=== PATIENT | male | born 1965 | race Caucasian/White ===

== ENCOUNTER 2017-04-26 21:44 | Emergency (ER) | payer MEDICAID ==
[~2017-04-26] VITALS: Ht 172.7 cm; Wt 85.3 kg
[2017-04-26 21:51] VITALS: BP_SYST 160
--- NOTE | 2017-04-26 23:21 | NUR ---
Patient to ER bed 2 to gown for evaluation. Side rails up. Report given to JODI JONAS.
--- NOTE | 2017-04-26 23:30 | NUR ---
Patient AAO x4, sitting in bed, c/o lower left abdominal pain at inguinal hernia repair site. Patient states he gets "dizzy" and "bloated". Vital signs stable. No acute distress noted. Will continue to monitor.
--- NOTE | 2017-04-26 23:39 | NUR ---
ER at bedside examining patient.
[2017-04-27 00:04] LABS: BASOPHILS % (AUTO) 0.5 % (0.0-2.0); EOSINOPHILS # (AUTO) 0.1 K/uL (0.0-0.4); EOSINOPHILS % (AUTO) 1.2 % (0.0-4.0); HEMATOCRIT 46.6 % (36-54); HEMOGLOBIN 15.3 g/dL (14.0-18.0); LYMPHOCYTES # (AUTO) 1.7 K/uL (1.0-5.5); LYMPHOCYTES % (AUTO) 21.2 % (20.5-51.5); MEAN CORPUSCULAR HEMOGLOBIN 29 pg (27-31); MEAN CORPUSCULAR HGB CONC 33 % (32-36); MEAN CORPUSCULAR VOLUME 88 fL (79.0-98.0); MONOCYTES # (AUTO) 0.9 K/uL (0.0-1.0); MONOCYTES % (AUTO) 10.9 % (1.7-9.3); NEUTROPHILS # (AUTO) 5.4 K/uL (1.8-7.7); NEUTROPHILS % (AUTO) 66.2 % (40.0-70.0); PLATELET COUNT (AUTO) 256 K/uL (130-430); RED BLOOD CELL COUNT(AUTO) 5.29 MIL/uL (4.2-6.2); RED CELL DISTRIBUTION WIDTH 12.1 % (9.0-15.0); WHITE BLOOD COUNT (AUTO) 8.1 K/uL (4.8-10.8)
[2017-04-27 00:13] LABS: ANION GAP 7 (5-15); CALCIUM 9.8 mg/dL (8.4-11.0); CHLORIDE 95 mmol/L (98-107); CREATININE 1.29 mg/dL (0.55-1.30); GLUCOSE 104 mg/dL (70-99); POTASSIUM 4.3 mmol/L (3.5-5.1); SODIUM SERUM 130 mmol/L (136-145); UREA NITROGEN, BLOOD 20 mg/dL (8-21)
[2017-04-27 00:14] LABS: GFR AFRICAN AMERICAN 76 mL/min (>90)
[2017-04-27 00:19] LABS: ALANINE AMINOTRANSFERASE 25 U/L (12-78); ALBUMIN 3.9 g/dL (3.4-4.8); ASPARTATE AMINOTRANSFERASE < 5 U/L (10-37); LIPASE 181 U/L (73-393); TOTAL BILIRUBIN 1.6 mg/dL (0.0-1.0)
[2017-04-27 01:00] VITALS: BP_SYST 155
--- NOTE | 2017-04-27 01:00 | NUR ---
Patient given written and verbal discharge instructions and verbalizes understanding. ER MD Dr. Honeycutt discussed with patient the results and treatment provided. Patient in stable condition. ID arm band removed. Rx of simethicone and meclizine given. Patient educated on pain management and to follow up with PMD. Pain Scale 0/10 . Opportunity for questions provided and answered. Medication side effect fact sheet provided.
== END 2017-04-27 01:00 | disposition home or self-care (01) ==
LOC: SED 21:44
DX: K80.20 Calculus of gallbladder without cholecystitis without obstruction (principal); I10 Essential (primary) hypertension; Z90.89 Acquired absence of other organs
CPT/HCPCS: 36415; 80053; 83690-TC; 85025; 99285

== ENCOUNTER 2017-05-29 17:12 | Inpatient (IN) | payer MEDICAID ==
[~2017-05-29] VITALS: Ht 172.7 cm; Wt 83.0 kg
[2017-05-29 17:21] VITALS: BP_SYST 157
[2017-05-29] MEDS ORDERED: NACL 0.9% 1,000 ML IV ONE ×2 (17:26→18:45)
[2017-05-29] MEDS ORDERED: KETOROLAC TROMETHAMINE 30 MG VIAL IVP ONE (17:30)
[2017-05-29] MEDS ORDERED: ONDANSETRON HCL 4 MG/2 ML VIAL IVP ONE (17:30)
[2017-05-29 17:39] LABS: BASOPHILS # (AUTO) 0.1 K/uL (0.0-0.2); EOSINOPHILS # (AUTO) 0.1 K/uL (0.0-0.4); EOSINOPHILS % (AUTO) 1.1 % (0.0-4.0); HEMATOCRIT 45.8 % (36-54); HEMOGLOBIN 15.4 g/dL (14.0-18.0); LYMPHOCYTES # (AUTO) 1.4 K/uL (1.0-5.5); MEAN CORPUSCULAR HEMOGLOBIN 29 pg (27-31); MEAN CORPUSCULAR HGB CONC 34 % (32-36); MEAN CORPUSCULAR VOLUME 87 fL (79.0-98.0); MONOCYTES # (AUTO) 0.9 K/uL (0.0-1.0); MONOCYTES % (AUTO) 7.4 % (1.7-9.3); NEUTROPHILS # (AUTO) 10.2 K/uL (1.8-7.7); NEUTROPHILS % (AUTO) 79.5 % (40.0-70.0); PLATELET COUNT (AUTO) 242 K/uL (130-430); RED BLOOD CELL COUNT(AUTO) 5.24 MIL/uL (4.2-6.2); RED CELL DISTRIBUTION WIDTH 12.6 % (9.0-15.0); WHITE BLOOD COUNT (AUTO) 12.7 K/uL (4.8-10.8)
[2017-05-29 17:54] LABS: CALCIUM 9.3 mg/dL (8.4-11.0); CREATININE 0.95 mg/dL (0.55-1.30)
[2017-05-29 17:59] LABS: ALBUMIN 3.9 g/dL (3.4-4.8)
[2017-05-29] MEDS ORDERED: LISI-221 PO (18:19)
[2017-05-29] MEDS ORDERED: fentaNYL CITRATE/PF 100 MCG/2 ML AMP IVP ONE (18:45)
[2017-05-29] MEDS ORDERED: PANTOPRAZOLE SODIUM 40 MG/VIAL (PROTONIX) IVP ONE (18:45)
[2017-05-29 19:26] VITALS: BP_SYST 160
[2017-05-29] MEDS ORDERED: cloNIDine HCL 0.1 MG TABLET PO PRN (19:30)
[2017-05-29] MEDS ORDERED: ONDANSETRON HCL 4 MG/2 ML VIAL IVP PRN (19:30)
[2017-05-29] MEDS ORDERED: MORPHINE 2 MG/ML INJ. SYRINGE IVP PRN (19:30)
[2017-05-29 19:31] LABS: BILIRUBIN,URINE NEGATIVE (NEGATIVE); BLOOD, URINE NEGATIVE (NEGATIVE); CLARITY/URINE CLEAR (CLEAR); COLOR,URINE YELLOW (YELLOW); GLUCOSE,URINE NEGATIVE (NEGATIVE); KETONES,URINE NEGATIVE (NEGATIVE); LEUKOCYTE ESTERASE ,URINE NEGATIVE (NEGATIVE); NITRITE, URINE NEGATIVE (NEGATIVE); PH,URINE 7.5 (5.0-8.0); PROTEIN URINE NEGATIVE (NEGATIVE); UROBILINOGEN,URINE 0.2 (0.2-1.0)
[2017-05-29 19:36] VITALS: BP_SYST 160
[2017-05-29] MEDS: MORPHINE 4 MG/ML INJ. SYRINGE IVP PRN ×2 (19:58→21:24)
[2017-05-29] MEDS: D5NS 1,000 ML IV SCH (20:11)
[2017-05-29] MEDS: hydrALAZINE HCL 20 MG/ML VIAL IVP PRN (20:28)
[2017-05-30] MEDS: D5NS 1,000 ML IV SCH ×3 (04:28→20:35)
[2017-05-30 08:15] VITALS: BP_SYST 134
[2017-05-30] MEDS: MORPHINE 4 MG/ML INJ. SYRINGE IVP PRN (09:17)
[2017-05-30 11:03] LABS: EOSINOPHILS # (AUTO) 0.1 K/uL (0.0-0.4); LYMPHOCYTES # (AUTO) 0.9 K/uL (1.0-5.5); MONOCYTES # (AUTO) 0.8 K/uL (0.0-1.0); NEUTROPHILS # (AUTO) 6.8 K/uL (1.8-7.7); WHITE BLOOD COUNT (AUTO) 8.6 K/uL (4.8-10.8)
[2017-05-30 11:05] LABS: BASOPHILS % (AUTO) 0.5 % (0.0-2.0); EOSINOPHILS % (AUTO) 0.9 % (0.0-4.0); HEMATOCRIT 39.8 % (36-54); HEMOGLOBIN 13.7 g/dL (14.0-18.0); LYMPHOCYTES % (AUTO) 10.8 % (20.5-51.5); MEAN CORPUSCULAR HEMOGLOBIN 30 pg (27-31); MEAN CORPUSCULAR HGB CONC 34 % (32-36); MEAN CORPUSCULAR VOLUME 88 fL (79.0-98.0); MONOCYTES % (AUTO) 9.7 % (1.7-9.3); NEUTROPHILS % (AUTO) 78.1 % (40.0-70.0); PLATELET COUNT (AUTO) 213 K/uL (130-430); RED BLOOD CELL COUNT(AUTO) 4.54 MIL/uL (4.2-6.2); RED CELL DISTRIBUTION WIDTH 12.5 % (9.0-15.0)
[2017-05-30 11:10] LABS: CALCIUM 7.8 mg/dL (8.4-11.0); CREATININE 0.7 mg/dL (0.55-1.30); POTASSIUM 3.8 mmol/L (3.5-5.1)
[2017-05-30 11:15] LABS: TOTAL BILIRUBIN 0.8 mg/dL (0.0-1.0)
[2017-05-30 12:00] VITALS: BP_SYST 128
[2017-05-30 14:47] LABS: BARBITURATE, URINE NEGATIVE (NEG <=200); BENZODIAZEPINE, URINE NEGATIVE (NEG <=150); CANNABINOID, URINE NEGATIVE (NEG <=50); COCAINE, URINE NEGATIVE (NEG <=150); METHAMPHETAMINES SCREEN,URINE NEGATIVE (NEG <=500); OPIATE, URINE NEGATIVE (NEG <=100); PHENCYCLIDINE SCREEN,URINE NEGATIVE (NEG <=25); UR TRICYCLIC ANTIDEPRESSANTS NEGATIVE (NEG <=300); URINE AMPHETAMINE NEGATIVE (NEG <=500); URINE METHADONE NEGATIVE (NEG <=200); URINE OXYCODONE SCREEN NEGATIVE (NEG <=100); URINE PROPOXYPHENE SCREEN NEGATIVE (NEG <=300)
[2017-05-30 16:52] VITALS: BP_SYST 135
[2017-05-30 20:05] VITALS: BP_SYST 144
[2017-05-31] VITALS (7 sets, daily range): BP systolic 125–165
[2017-05-31] MEDS: D5NS 1,000 ML IV SCH ×3 (02:56→18:44)
[2017-05-31 05:52] LABS: ALBUMIN 2.9 g/dL (3.4-4.8); CALCIUM 8.3 mg/dL (8.4-11.0); CREATININE 0.82 mg/dL (0.55-1.30); POTASSIUM 3.7 mmol/L (3.5-5.1); TOTAL BILIRUBIN 0.9 mg/dL (0.0-1.0)
[2017-05-31 05:55] LABS: BASOPHILS % (AUTO) 0.2 % (0.0-2.0); EOSINOPHILS # (AUTO) 0.1 K/uL (0.0-0.4); EOSINOPHILS % (AUTO) 1.3 % (0.0-4.0); HEMATOCRIT 40.4 % (36-54); HEMOGLOBIN 13.8 g/dL (14.0-18.0); LYMPHOCYTES # (AUTO) 0.8 K/uL (1.0-5.5); LYMPHOCYTES % (AUTO) 8.9 % (20.5-51.5); MEAN CORPUSCULAR HEMOGLOBIN 30 pg (27-31); MEAN CORPUSCULAR HGB CONC 34 % (32-36); MEAN CORPUSCULAR VOLUME 88 fL (79.0-98.0); MONOCYTES # (AUTO) 0.9 K/uL (0.0-1.0); MONOCYTES % (AUTO) 10.3 % (1.7-9.3); NEUTROPHILS # (AUTO) 7.2 K/uL (1.8-7.7); NEUTROPHILS % (AUTO) 79.3 % (40.0-70.0); PLATELET COUNT (AUTO) 205 K/uL (130-430); RED BLOOD CELL COUNT(AUTO) 4.58 MIL/uL (4.2-6.2); RED CELL DISTRIBUTION WIDTH 13.1 % (9.0-15.0)
[2017-05-31] MEDS: hydrALAZINE HCL 20 MG/ML VIAL IVP PRN (12:36)
[2017-06-01] MEDS: TEMAZEPAM 15 MG CAPSULE PO PRN (00:02)
[2017-06-01 06:36] LABS: BASOPHILS % (AUTO) 0.4 % (0.0-2.0); EOSINOPHILS # (AUTO) 0.2 K/uL (0.0-0.4); EOSINOPHILS % (AUTO) 2.2 % (0.0-4.0); HEMATOCRIT 41.1 % (36-54); HEMOGLOBIN 13.8 g/dL (14.0-18.0); LYMPHOCYTES # (AUTO) 1.1 K/uL (1.0-5.5); LYMPHOCYTES % (AUTO) 11.8 % (20.5-51.5); MEAN CORPUSCULAR HEMOGLOBIN 30 pg (27-31); MEAN CORPUSCULAR HGB CONC 34 % (32-36); MEAN CORPUSCULAR VOLUME 89 fL (79.0-98.0); MONOCYTES # (AUTO) 1.1 K/uL (0.0-1.0); MONOCYTES % (AUTO) 12.5 % (1.7-9.3); NEUTROPHILS # (AUTO) 6.5 K/uL (1.8-7.7); NEUTROPHILS % (AUTO) 73.1 % (40.0-70.0); PLATELET COUNT (AUTO) 226 K/uL (130-430); RED BLOOD CELL COUNT(AUTO) 4.63 MIL/uL (4.2-6.2); RED CELL DISTRIBUTION WIDTH 12.9 % (9.0-15.0); WHITE BLOOD COUNT (AUTO) 8.9 K/uL (4.8-10.8)
[2017-06-01 06:57] LABS: ALBUMIN 3.1 g/dL (3.4-4.8); CALCIUM 8.7 mg/dL (8.4-11.0); CREATININE 0.78 mg/dL (0.55-1.30); POTASSIUM 3.4 mmol/L (3.5-5.1); TOTAL BILIRUBIN 1.6 mg/dL (0.0-1.0)
[2017-06-01 08:00] VITALS: BP_SYST 135
[2017-06-01] MEDS ORDERED: MORPHINE 4 MG/ML INJ. SYRINGE IVP PRN (09:31)
[2017-06-01] MEDS: D5NS 1,000 ML IV SCH ×3 (10:33→20:43)
[2017-06-01 12:53] VITALS: BP_SYST 143
[2017-06-01 16:45] VITALS: BP_SYST 142
[2017-06-01] MEDS ORDERED: DIATR MEGLU/DIATRIZ SOD 30 ML SOLUTION PO ONE (16:57)
[2017-06-01 19:00] VITALS: BP_SYST 140
[2017-06-01 20:00] VITALS: BP_SYST 140
[2017-06-02 00:09] VITALS: BP_SYST 135
[2017-06-02] MEDS: TEMAZEPAM 15 MG CAPSULE PO PRN (01:05)
[2017-06-02] MEDS: D5NS 1,000 ML IV SCH ×3 (03:23→15:47)
[2017-06-02 08:20] VITALS: BP_SYST 136
[2017-06-02 12:06] VITALS: BP_SYST 134
[2017-06-02 16:05] VITALS: BP_SYST 130
[2017-06-02 20:05] VITALS: BP_SYST 135
[2017-06-02 23:43] VITALS: BP_SYST 132
[2017-06-03] MEDS: D5NS 1,000 ML IV SCH ×2 (00:32→09:06)
[2017-06-03 06:20] LABS: BASOPHILS % (AUTO) 0.5 % (0.0-2.0); EOSINOPHILS # (AUTO) 0.2 K/uL (0.0-0.4); EOSINOPHILS % (AUTO) 3.4 % (0.0-4.0); HEMATOCRIT 38.4 % (36-54); HEMOGLOBIN 13.2 g/dL (14.0-18.0); LYMPHOCYTES # (AUTO) 1.1 K/uL (1.0-5.5); LYMPHOCYTES % (AUTO) 15.7 % (20.5-51.5); MEAN CORPUSCULAR HEMOGLOBIN 30 pg (27-31); MEAN CORPUSCULAR HGB CONC 34 % (32-36); MEAN CORPUSCULAR VOLUME 88 fL (79.0-98.0); MONOCYTES # (AUTO) 0.9 K/uL (0.0-1.0); MONOCYTES % (AUTO) 12.5 % (1.7-9.3); NEUTROPHILS # (AUTO) 4.9 K/uL (1.8-7.7); NEUTROPHILS % (AUTO) 67.9 % (40.0-70.0); PLATELET COUNT (AUTO) 224 K/uL (130-430); RED BLOOD CELL COUNT(AUTO) 4.35 MIL/uL (4.2-6.2); RED CELL DISTRIBUTION WIDTH 12.4 % (9.0-15.0); WHITE BLOOD COUNT (AUTO) 7.1 K/uL (4.8-10.8)
[2017-06-03 07:03] LABS: ALBUMIN 2.9 g/dL (3.4-4.8); CALCIUM 8.5 mg/dL (8.4-11.0); CREATININE 0.79 mg/dL (0.55-1.30); POTASSIUM 3.1 mmol/L (3.5-5.1)
[2017-06-03 08:20] VITALS: BP_SYST 150
[2017-06-03] MEDS: LEVOFLOXACIN 500 MG/D5W 100 ML IV SCH (09:25)
[2017-06-03] MEDS ORDERED: POTASSIUM CHLORIDE 20 MEQ/PKT PACKET PO ONE (12:15)
[2017-06-03] MEDS ORDERED: LR 1,000 ML IV SCH (12:15)
[2017-06-03 13:12] VITALS: BP_SYST 151
[2017-06-03] MEDS: metroNIDAZOLE 500 mg/NS 100 ML IV SCH ×2 (15:10→22:06)
[2017-06-03 16:14] VITALS: BP_SYST 152
[2017-06-03 20:00] VITALS: BP_SYST 158
[2017-06-03] MEDS: POTASSIUM CHLORIDE 20 MEQ/PKT PACKET PO SCH (21:07)
[2017-06-03] MEDS: TEMAZEPAM 15 MG CAPSULE PO PRN (23:45)
[2017-06-03 23:57] VITALS: BP_SYST 148
[2017-06-04] MEDS: metroNIDAZOLE 500 mg/NS 100 ML IV SCH ×3 (05:21→21:28)
[2017-06-04 06:24] LABS: BASOPHILS % (AUTO) 0.5 % (0.0-2.0); EOSINOPHILS # (AUTO) 0.2 K/uL (0.0-0.4); EOSINOPHILS % (AUTO) 3.4 % (0.0-4.0); HEMATOCRIT 38.8 % (36-54); HEMOGLOBIN 13.1 g/dL (14.0-18.0); LYMPHOCYTES # (AUTO) 1.1 K/uL (1.0-5.5); LYMPHOCYTES % (AUTO) 17.8 % (20.5-51.5); MEAN CORPUSCULAR HEMOGLOBIN 29 pg (27-31); MEAN CORPUSCULAR HGB CONC 34 % (32-36); MEAN CORPUSCULAR VOLUME 87 fL (79.0-98.0); MONOCYTES # (AUTO) 0.8 K/uL (0.0-1.0); MONOCYTES % (AUTO) 13.4 % (1.7-9.3); NEUTROPHILS % (AUTO) 64.9 % (40.0-70.0); PLATELET COUNT (AUTO) 224 K/uL (130-430); RED BLOOD CELL COUNT(AUTO) 4.44 MIL/uL (4.2-6.2); RED CELL DISTRIBUTION WIDTH 12.5 % (9.0-15.0); WHITE BLOOD COUNT (AUTO) 6.1 K/uL (4.8-10.8)
[2017-06-04 06:42] LABS: BILIRUBIN,DIRECT 0.2 mg/dL (0.0-0.3); CALCIUM 8.8 mg/dL (8.4-11.0); CREATININE 0.85 mg/dL (0.55-1.30); POTASSIUM 4.2 mmol/L (3.5-5.1)
[2017-06-04 08:00] VITALS: BP_SYST 142
[2017-06-04] MEDS: LEVOFLOXACIN 500 MG/D5W 100 ML IV SCH (08:06)
[2017-06-04] MEDS: POTASSIUM CHLORIDE 20 MEQ/PKT PACKET PO SCH ×2 (08:08→21:26)
[2017-06-04 12:06] VITALS: BP_SYST 147
[2017-06-04 16:14] VITALS: BP_SYST 146
[2017-06-04 21:40] VITALS: BP_SYST 133
[2017-06-04] MEDS: TEMAZEPAM 15 MG CAPSULE PO PRN (23:13)
[2017-06-05 02:25] VITALS: BP_SYST 118
[2017-06-05] MEDS: metroNIDAZOLE 500 mg/NS 100 ML IV SCH (05:53)
[2017-06-05 08:06] VITALS: BP_SYST 132
[2017-06-05] MEDS: POTASSIUM CHLORIDE 20 MEQ/PKT PACKET PO SCH (08:26)
[2017-06-05] MEDS: LEVOFLOXACIN 500 MG/D5W 100 ML IV SCH (08:27)
[2017-06-05 10:10] VITALS: BP_SYST 132
[2017-06-05 12:12] VITALS: BP_SYST 124
== END 2017-06-05 16:45 | disposition home or self-care (01) | DRG 282 ==
LOC: SED 17:12 → SMU 18:57
PROVIDERS: ADMIT Internal Medicine Hospice and Palliative Medicine; ATTEND Internal Medicine Hospice and Palliative Medicine
DX: K85.10 Biliary acute pancreatitis without necrosis or infection (principal); K57.92 Diverticulitis of intestine, part unspecified, without perforation or abscess without bleeding; I10 Essential (primary) hypertension; K80.20 Calculus of gallbladder without cholecystitis without obstruction; E87.6 Hypokalemia; Z79.899 Other long term (current) drug therapy; Z90.49 Acquired absence of other specified parts of digestive tract
CPT/HCPCS: 36415; 74181; 76700-TC; 80048; 80053; 80061; 80076; 80307; 81003; 83690-TC; 85025; 96361; 96374; 96375; 99285; C9113; J0360; J1885; J1956; J2270; J3010; J3490; J7030; J7042; Q9964

== ENCOUNTER 2018-01-03 21:44 | Emergency (ER) | payer MEDICAID ==
[~2018-01-03] VITALS: Ht 172.7 cm; Wt 78.0 kg
[2018-01-03 21:44] VITALS: BP_SYST 148
[~2018-01-03 21:44] MED LIST: LISI-221 PO
--- NOTE | 2018-01-03 21:44 | NUR ---
Pt placed to ER bed 02. Pt c/o generalized abdominal pain with "inflammation" x 2 weeks. Pt states that everytime after a meal or drink he feels bloated and urinates alot. Denies N/V/D. Abdomen round, non-distended.
--- NOTE | 2018-01-03 22:00 | NUR ---
Dr. Mercer at bedside.
[2018-01-03] MEDS ORDERED: PANTOPRAZOLE SODIUM 40 MG TAB PO ONE (22:45)
[2018-01-03] MEDS ORDERED: MAG-AL HYDROX/SIMETH 30 ML UDC PO ONE (22:45)
[2018-01-03] MEDS ORDERED: LIDOCAINE VISCOUS 2%, 15 ML UDC MM ONE (22:45)
[2018-01-03] MEDS ORDERED: BELLADONNA ALKALOIDS/PHENOBARB 5 ML UDC PO ONE (22:45)
[2018-01-03 23:10] VITALS: BP_SYST 130
--- NOTE | 2018-01-03 23:10 | NUR ---
Patient given written and verbal discharge instructions and verbalizes understanding. ER MD discussed with patient the results and treatment provided. Patient in stable condition. ID arm band removed. Rx of Omeprazole given. Patient educated on pain management and to follow up with PMD. Pain Scale 0/10. Opportunity for questions provided and answered. Medication side effect fact sheet provided.
== END 2018-01-03 23:10 | disposition home or self-care (01) ==
LOC: SED 21:44
DX: K29.70 Gastritis, unspecified, without bleeding (principal); I10 Essential (primary) hypertension
CPT/HCPCS: 99284; J2001

== ENCOUNTER 2018-01-05 16:41 | Emergency (ER) | payer MEDICAID ==
[~2018-01-05] VITALS: Ht 172.7 cm; Wt 73.5 kg
[2018-01-05 17:02] VITALS: BP_SYST 143
--- NOTE | 2018-01-05 18:30 | NUR ---
Pt placed to ER bed 08. Pt c/o dizziness, abdominal inflammation, and numbness to feet x 3 days. Pt states that after drinking water he feels inflamation to abdomen. Denies c/o C/P or SOB. Pt seen here 3 days ago for same s/s.
--- NOTE | 2018-01-05 18:40 | NUR ---
Dr. Mares at bedside.
[2018-01-05] MEDS ORDERED: MECLIZINE HCL 25 MG TABLET (ANITVERT) PO ONE (18:45)
[2018-01-05] MEDS ORDERED: METOCLOPRAMIDE HCL 10 MG/2 ML VIAL IVP ONE (18:45)
[2018-01-05 19:00] LABS: BASOPHILS # (AUTO) 0.2 K/uL (0.0-0.2); BASOPHILS % (AUTO) 1.6 % (0.0-2.0); EOSINOPHILS # (AUTO) 0.1 K/uL (0.0-0.4); EOSINOPHILS % (AUTO) 0.7 % (0.0-4.0); HEMATOCRIT 50.8 % (36-54); HEMOGLOBIN 17.1 g/dL (14.0-18.0); LYMPHOCYTES # (AUTO) 1.6 K/uL (1.0-5.5); MEAN CORPUSCULAR HEMOGLOBIN 30 pg (27-31); MEAN CORPUSCULAR HGB CONC 34 % (32-36); MEAN CORPUSCULAR VOLUME 89 fL (79.0-98.0); MONOCYTES # (AUTO) 0.9 K/uL (0.0-1.0); MONOCYTES % (AUTO) 8.7 % (1.7-9.3); PLATELET COUNT (AUTO) 239 K/uL (130-430); RED BLOOD CELL COUNT(AUTO) 5.74 MIL/uL (4.2-6.2); RED CELL DISTRIBUTION WIDTH 12.3 % (9.0-15.0); WHITE BLOOD COUNT (AUTO) 9.8 K/uL (4.8-10.8)
--- NOTE | 2018-01-05 19:01 | NUR ---
Pt to X-ray via W/C.
--- NOTE | 2018-01-05 19:10 | NUR ---
Pt returns from X-ray. No needs verbalized at this time.
[2018-01-05 19:15] LABS: CALCIUM 9.7 mg/dL (8.4-11.0); CREATININE 1.18 mg/dL (0.55-1.30); POTASSIUM 4.5 mmol/L (3.5-5.1)
[2018-01-05 19:17] LABS: PROTHROMBIN TIME 10.4 SECS (9.5-12.5)
[2018-01-05 19:22] LABS: ALBUMIN 4.3 g/dL (3.4-4.8); TOTAL BILIRUBIN 1.4 mg/dL (0.0-1.0)
--- NOTE | 2018-01-05 20:35 | NUR ---
Patient given written and verbal discharge instructions and verbalizes understanding. ER MD discussed with patient the results and treatment provided. Patient in stable condition. ID arm band removed. IV catheter removed intact and dressing applied, no active bleeding. Rx of Antivert given. Patient educated on pain management and to follow up with PMD. Pain Scale 0/10. Opportunity for questions provided and answered. Medication side effect fact sheet provided.
[2018-01-05 20:36] VITALS: BP_SYST 128
== END 2018-01-05 20:35 | disposition home or self-care (01) ==
LOC: SED 16:41
DX: R42 Dizziness and giddiness (principal); I10 Essential (primary) hypertension
CPT/HCPCS: 36415; 70450; 71045; 80053; 82550; 84484; 85025; 85610; 85730; 93005; 96374; 99285; J2765; J8597

== ENCOUNTER 2018-03-29 15:00 | Emergency (ER) | payer MEDICAID ==
[~2018-03-29] VITALS: Ht 172.7 cm; Wt 78.5 kg
[2018-03-29 15:12] VITALS: BP_SYST 126
--- NOTE | 2018-03-29 15:12 | NUR ---
Patient to ER bed 05 to gown for evaluation. Side rails up. Report given to .
--- NOTE | 2018-03-29 15:15 | NUR ---
Dr. Patel at bedside to examine patient.
--- NOTE | 2018-03-29 15:16 | NUR ---
Patient arrive to ER ambulating A&O x4. C/O of rash to right arm and bump to left abdomen. Patient stated the bump is located on previous hernia repair incision. Patient states he noticed the bump last night when it drained pus. VS stable, afebrile and respirations equal and unlabored.
[2018-03-29 15:39] VITALS: BP_SYST 126
--- NOTE | 2018-03-29 15:41 | NUR ---
Patient given written and verbal discharge instructions and verbalizes understanding. ER MD discussed with patient the results and treatment provided. Patient in stable condition. ID arm band removed. Rx of Clindamycin and Hydrocortisone given. Patient educated on pain management and to follow up with PMD. Pain Scale 0/10. Opportunity for questions provided and answered. Medication side effect fact sheet provided.
== END 2018-03-29 15:39 | disposition home or self-care (01) ==
LOC: SED 15:00
DX: L25.9 Unspecified contact dermatitis, unspecified cause (principal); L03.311 Cellulitis of abdominal wall; I10 Essential (primary) hypertension
CPT/HCPCS: 99283

== ENCOUNTER 2018-06-24 16:53 | Emergency (ER) | payer MEDICAID ==
[~2018-06-24] VITALS: Ht 172.7 cm; Wt 78.9 kg
[2018-06-24 17:23] VITALS: BP_SYST 136
[2018-06-24] MEDS ORDERED: PREDNISONE 20 MG TABLET PO ONE (18:00)
[2018-06-24] MEDS ORDERED: KETOROLAC TROMETHAMINE 60 MG/2 ML VIAL IM ONE (18:00)
[2018-06-24 18:36] VITALS: BP_SYST 129
== END 2018-06-24 18:36 | disposition home or self-care (01) ==
LOC: SED 16:53
DX: M54.40 Lumbago with sciatica, unspecified side (principal); I10 Essential (primary) hypertension
CPT/HCPCS: 96372; 99283; J1885; J7512

== ENCOUNTER 2021-09-22 01:44 | Emergency (ER) | payer MEDICAID ==
[~2021-09-22] VITALS: Ht 172.7 cm; Wt 78.9 kg
[2021-09-22 01:58] VITALS: BP_SYST 176
--- NOTE | 2021-09-22 02:30 | NUR ---
bib amb with triage nurse. c/o dizziness and weird taste in mouh after covid mediation x 5days vss nsr on monitor. continued monitoring
--- NOTE | 2021-09-22 02:39 | NUR ---
COVID NASAL SWAB COLLECTED AND SENT TO LAB
[2021-09-22 03:01] LABS: EOSINOPHILS # (AUTO) 0.3 K/uL (0.0-0.4); LYMPHOCYTES # (AUTO) 1.2 K/uL (1.0-5.5); PLATELET COUNT (AUTO) 154 K/uL (130-430)
[2021-09-22 03:05] LABS: ANION GAP 2 (5-15); CALCIUM 8.4 mg/dL (8.4-11.0); CHLORIDE 100 mmol/L (98-107); CREATININE 0.81 mg/dL (0.55-1.30); GLUCOSE 108 mg/dL (70-99); POTASSIUM 4.6 mmol/L (3.5-5.1); SODIUM SERUM 134 mmol/L (136-145); UREA NITROGEN, BLOOD 12 mg/dL (8-21)
[2021-09-22 03:08] LABS: BASOPHILS % (AUTO) 0.6 % (0.0-2.0); HEMATOCRIT 46.9 % (36-54); HEMOGLOBIN 16.1 g/dL (14.0-18.0); LYMPHOCYTES % (AUTO) 20.4 % (20.5-51.5); MEAN CORPUSCULAR HEMOGLOBIN 30 pg (27-31); MEAN CORPUSCULAR HGB CONC 34 % (32-36); MEAN CORPUSCULAR VOLUME 87 fL (79.0-98.0); MONOCYTES # (AUTO) 0.8 K/uL (0.0-1.0); NEUTROPHILS # (AUTO) 3.4 K/uL (1.8-7.7); RED BLOOD CELL COUNT(AUTO) 5.39 MIL/uL (4.2-6.2); RED CELL DISTRIBUTION WIDTH 13.7 % (9.0-15.0); WHITE BLOOD COUNT (AUTO) 5.7 K/uL (4.8-10.8)
[2021-09-22 03:14] LABS: ALANINE AMINOTRANSFERASE 43 U/L (12-78); ALBUMIN 3.3 g/dL (3.4-4.8); ASPARTATE AMINOTRANSFERASE 23 U/L (10-37); TOTAL BILIRUBIN 0.7 mg/dL (0.0-1.0)
[2021-09-22 03:17] LABS: GFR AFRICAN AMERICAN 128 mL/min (>90)
[2021-09-22 04:06] VITALS: BP_SYST 139
--- NOTE | 2021-09-22 04:07 | NUR ---
PT STABLE FOR D/C TO HOME. TO LOBBY AMB WITH ALL PAPERWORK IN HAND
== END 2021-09-22 04:06 | disposition home or self-care (01) ==
LOC: SED 01:44
DX: U07.1 COVID-19 (principal); R55 Syncope and collapse; R42 Dizziness and giddiness; R05.9 Cough, unspecified; Z79.899 Other long term (current) drug therapy
CPT/HCPCS: 36415; 71045; 80053; 84484; 85025; 93005; 99285